=== PATIENT | female | born 1935 | race African-American/Black ===

== ENCOUNTER 2017-03-09 17:21 | Emergency (ER) | payer MEDICARE ==
[2017-03-09 17:58] LABS: ADD MAN DIFF? NO
[2017-03-09 18:00] LABS: BASO % 0 % (0-3); EOS % 2 % (0-3); HEMATOCRIT 30.4 % (36.0-47.0); HEMOGLOBIN 9.9 g/dL (12.0-15.5); LYMPH # 1.3 x10^3/uL (1.0-4.8); LYMPH % 21 % (24-48); MEAN CORPUSCULAR HEMOGLOBIN 32 pg (25-35); MEAN CORPUSCULAR HGB CONC 33 g/dL (31-37); MEAN CORPUSCULAR VOLUME 99 fL (79-100); MONO % 8 % (0-9); NEUT % 70 % (31-73); PLATELET COUNT 188 x10^3/uL (140-400); RED BLOOD COUNT 3.07 x10^6/uL (3.50-5.40); WHITE BLOOD COUNT 6.3 x10^3/uL (4.0-11.0)
[2017-03-09 18:19] LABS: ANION GAP 11 (6-14); BLOOD UREA NITROGEN 26 mg/dL (7-20); BUN/CREATININE RATIO 24 (6-20); CALCIUM 8.8 mg/dL (8.5-10.1); CARBON DIOXIDE 24 mmol/L (21-32); CHLORIDE 110 mmol/L (98-107); CREATININE 1.1 mg/dL (0.6-1.0); GFR 57.4; GLUCOSE 110 mg/dL (70-99); POTASSIUM 4.6 mmol/L (3.5-5.1); SODIUM 145 mmol/L (136-145)
[2017-03-09 18:25] LABS: ALBUMIN 3.7 g/dL (3.4-5.0); ALBUMIN/GLOBULIN RATIO 1.3 (1.0-1.7); ALK PHOS 126 U/L (46-116); ALT (SGPT) 116 U/L (14-59); AST (SGOT) 72 U/L (15-37); TOTAL BILIRUBIN 0.5 mg/dL (0.2-1.0); TOTAL PROTEIN 6.6 g/dL (6.4-8.2)
[2017-03-09 18:30] LABS: TROPONINI 0.182 ng/mL (0.000-0.055)
[2017-03-09] MEDS: IOHEXOL 300 MG/ML 100ML VIAL. IV (19:38)
[2017-03-09] MEDS ORDERED: CONTRAST GIVEN MC (19:45)
== END 2017-03-09 21:30 | disposition home or self-care (01) ==
LOC: ER 17:21
DX: R06.00 Dyspnea, unspecified (principal); R53.81 Other malaise; R53.83 Other fatigue; I11.0 Hypertensive heart disease with heart failure; I50.9 Heart failure, unspecified; M10.9 Gout, unspecified; Z88.0 Allergy status to penicillin; Z88.1 Allergy status to other antibiotic agents
CPT/HCPCS: 36415; 71010; 71275; 80053; 84484; 85025; 85379; 93005; 99285-25; Q9967

== ENCOUNTER 2018-10-02 22:57 | Emergency (ER) | payer BC, MEDICARE ==
[~2018-10-02] VITALS: Ht 175.3 cm; Wt 61.2 kg
[~2018-10-02 22:57] MED LIST: ATOR20TA PO; LISI-334 PO; METO-239 PO; TRIA1TAB3 PO
[2018-10-02 23:23] LABS: BASO % 1 % (0-3); EOS % 0 % (0-3); HEMATOCRIT 34.8 % (36.0-47.0); HEMOGLOBIN 11.7 g/dL (12.0-15.5); LYMPH # 1.3 x10^3/uL (1.0-4.8); LYMPH % 15 % (24-48); MEAN CORPUSCULAR HEMOGLOBIN 33 pg (25-35); MEAN CORPUSCULAR HGB CONC 34 g/dL (31-37); MEAN CORPUSCULAR VOLUME 99 fL (79-100); MONO # 0.7 x10^3/uL (0.0-1.1); MONO % 8 % (0-9); NEUT # 6.6 x10^3/uL (1.8-7.7); NEUT % 77 % (31-73); PLATELET COUNT 228 x10^3/uL (140-400); RED BLOOD COUNT 3.51 x10^6/uL (3.50-5.40); RED CELL DISTRIBUTION WIDTH 14.5 % (11.5-14.5); WHITE BLOOD COUNT 8.7 x10^3/uL (4.0-11.0)
[2018-10-02 23:32] LABS: PROTHROMBIN TIME PATIENT 14.4 SEC (11.7-14.0)
[2018-10-02 23:34] LABS: CALCIUM 10.2 mg/dL (8.5-10.1); CREATININE 1.4 mg/dL (0.6-1.0); GFR 43.2; POTASSIUM 4.9 mmol/L (3.5-5.1)
[2018-10-02 23:39] LABS: ALBUMIN 4.5 g/dL (3.4-5.0); ALBUMIN/GLOBULIN RATIO 1.1 (1.0-1.7); TOTAL BILIRUBIN 0.3 mg/dL (0.2-1.0); TOTAL PROTEIN 8.5 g/dL (6.4-8.2)
[2018-10-03] VITALS: BP 132/66
[2018-10-03] MEDS ORDERED: OMEP20TA8 PO (00:01)
[2018-10-03] MEDS ORDERED: LIDO:MAALOX 1:1 20 ML SINGLE DOSE. SWSW ONE (00:15)
--- NOTE | 2018-10-03 00:17 | PHYS DOC ---
Past Medical History Past Medical History: CHF, GERD, Hypertension Additional Past Medical Histor: GOUT Past Surgical History: Other Additional Past Surgical Histo: LEFT GROIN HERNIA REPAIR, CARDIAC CATH X2 WEEKS AGO NO INTERVENTION Alcohol Use: None Drug Use: None Adult General Chief Complaint Chief Complaint: CHEST PAIN HPI HPI Patient is a 83 year old [female] who presents with [chest pain]. Pt reports waking up this morning around 6:00 AM with epigastric/lower chest pain and b/l shoulder pain. She tried to go back to sleep again to see if it would go away but when she woke up it was still there. It has been constant since this time. She describes the pain as an achey pain rated 8/10 that worsens with deep inspiration and does not radiate. She denies any sensation of chest pressure. She denies neck pain, jaw pain, arm pain, nausea, or vomiting. She has a history of GERD and gastric ulcers. Review of Systems Review of Systems Constitutional: Denies fever or chills Eyes: Denies change in visual acuity, redness, or eye pain HENT: Denies nasal congestion or sore throat Respiratory: Denies cough or shortness of breath Cardiovascular: No additional information not addressed in HPI GI: Denies nausea, vomiting, bloody stools or diarrhea [Admits epigastric pain] : Denies dysuria or hematuria Musculoskeletal: Denies back pain [Admits b/l shoulder pain] Integument: Denies rash or skin lesions Neurologic: Denies headache, focal weakness or sensory changes Endocrine: Denies polyuria or polydipsia All other systems were reviewed and found to be within normal limits, except as documented in this note. Current Medications Current Medications Current Medications Medications (Trade) Dose Ordered Sig/Onofre Start Time Stop Time Status Last Admin Dose Admin Multi-Ingredient Mouthwash/Gargle (Gi Cocktail) 20 ml 1X ONCE 10/03/18 00:15 10/03/18 00:16 DC 10/03/18 00:08 20 ML Allergies Allergies Allergies Coded Allergies Type Severity Reaction Last Updated Verified Penicillins Allergy Severe 03/08/16 Yes daptomycin Allergy Intermediate 08/12/14 Yes vancomycin Allergy Intermediate 08/12/14 Yes Physical Exam Physical Exam Constitutional: Well developed, well nourished, no acute distress, non-toxic appearance. [Appears younger than stated age] HENT: Normocephalic, atraumatic, bilateral external ears normal, oropharynx moist, no oral exudates, nose normal. Eyes: PERRLA, EOMI, conjunctiva normal, no discharge. Neck: Normal range of motion, no tenderness, supple, no stridor. Cardiovascular:Heart rate regular rhythm, no murmur Lungs & Thorax: Bilateral breath sounds clear to auscultation Abdomen: Bowel sounds normal, soft, no tenderness, no masses, no pulsatile masses. [Epigastric pain was non-reproducible with palpation] Skin: Warm, dry, no erythema, no rash. Back: No tenderness, no CVA tenderness. Extremities: No tenderness, no cyanosis, no clubbing, ROM intact, no edema. [+2/4 radial pulses b/l] Neurologic: Alert and oriented X 3, normal motor function, normal sensory function, no focal deficits noted. Psychologic: Affect normal, judgement normal, mood normal. Current Patient Data Vital Signs Vital Signs Date Time Temp Pulse Resp B/P (MAP) Pulse Ox O2 Delivery O2 Flow Rate FiO2 10/03/18 00:00 91 18 132/66 (88) 99 Room Air 10/02/18 23:03 99.0 99.0 Lab Values Laboratory Tests Test 10/02/18 23:15 White Blood Count 8.7 x10^3/uL (4.0-11.0) Red Blood Count 3.51 x10^6/uL (3.50-5.40) Hemoglobin 11.7 g/dL (12.0-15.5) L Hematocrit 34.8 % (36.0-47.0) L Mean Corpuscular Volume 99 fL (79-100) Mean Corpuscular Hemoglobin 33 pg (25-35) Mean Corpuscular Hemoglobin Concent 34 g/dL (31-37) Red Cell Distribution Width 14.5 % (11.5-14.5) Platelet Count 228 x10^3/uL (140-400) Neutrophils (%) (Auto) 77 % (31-73) H Lymphocytes (%) (Auto) 15 % (24-48) L Monocytes (%) (Auto) 8 % (0-9) Eosinophils (%) (Auto) 0 % (0-3) Basophils (%) (Auto) 1 % (0-3) Neutrophils # (Auto) 6.6 x10^3/uL (1.8-7.7) Lymphocytes # (Auto) 1.3 x10^3/uL (1.0-4.8) Monocytes # (Auto) 0.7 x10^3/uL (0.0-1.1) Eosinophils # (Auto) 0.0 x10^3/uL (0.0-0.7) Basophils # (Auto) 0.0 x10^3/uL (0.0-0.2) Prothrombin Time 14.4 SEC (11.7-14.0) H Prothrombin Time INR 1.2 (0.8-1.1) H Sodium Level 138 mmol/L (136-145) Potassium Level 4.9 mmol/L (3.5-5.1) Chloride Level 102 mmol/L (98-107) Carbon Dioxide Level 25 mmol/L (21-32) Anion Gap 11 (6-14) Blood Urea Nitrogen 44 mg/dL (7-20) H Creatinine 1.4 mg/dL (0.6-1.0) H Estimated GFR (Cockcroft-Gault) 43.2 BUN/Creatinine Ratio 31 (6-20) H Glucose Level 110 mg/dL (70-99) H Calcium Level 10.2 mg/dL (8.5-10.1) H Total Bilirubin 0.3 mg/dL (0.2-1.0) Aspartate Amino Transferase (AST) 23 U/L (15-37) Alanine Aminotransferase (ALT) 27 U/L (14-59) Alkaline Phosphatase 123 U/L (46-116) H Troponin I Quantitative < 0.017 ng/mL (0.000-0.055) IG-Cdq-J-Type Natriuretic Peptide 134 pg/mL (0-449) Total Protein 8.5 g/dL (6.4-8.2) H Albumin 4.5 g/dL (3.4-5.0) Albumin/Globulin Ratio 1.1 (1.0-1.7) Lipase 119 U/L (73-393) Laboratory Tests 10/02/18 23:15 Laboratory Tests 10/02/18 23:15 EKG EKG [EKG performed on 10/02/2018 at 23:04:30 showed no STEMI. This EKG showed no obvious abnormalities/changes compared to a previous EKG on 03/09/2017. Radiology/Procedures Radiology/Procedures cxr neg my read[] Course & Med Decision Making Course & Med Decision Making Pertinent Labs and Imaging studies reviewed. (See chart for details) [Pt is an 83 yo female presenting with chest pain. Her pain started in the epigastrium this morning and evolved into diffuse chest pain. Pt has non- radiating achy pain rated an 8/10 that worsens with inspiration. Pt had a cardi ac catheterization performed when she was seen previously here at [facility] for chest pain in February 2017. At that time the catheterization showed no occlusion or evidence of coronary artery disease.Pt has a history of GERD. An EKG, troponin, CXR, CBC, and CMP were ordered to rule out TX or pneumonia. EKG performed in the ED was essentially unchanged from a previous EKG done on 03/09/2017. Her troponin levels were not elevated after constant pain all day. Suspicion of TX is low now because of the negative troponin, essentially unchanged EKG, and the normal catherization 02/2017. PE is unlikely in this pt as she takes eliquis daily for atrial fibrillation, O2 Saturation of 100%, and no history of clots in the past. A GI cocktail was prescribed for the patients possible indigestion/GERD. reassurnace provided, d/c with daughter f/u with pmd next week seems reasonable. Deuceon Disclaimer Dragon Disclaimer This electronic medical record was generated, in whole or in part, using a voice recognition dictation system. Departure Departure Impression: Primary Impression: Chest pain Disposition: HOME, SELF-CARE Condition: STABLE Referrals: JOSÉ MANUEL NAILS MD (PCP) Scripts Omeprazole (OMEPRAZOLE) 20 Mg Tablet.dr 1 TAB PO DAILY, #30 TAB 0 Refills Prov: DIRK DAWKINS MD 10/03/18 DIRK DAWKINS MD Oct 03, 2018 00:17
--- NOTE | 2018-10-03 07:30 | RAD ---
Indication: Chest pain TECHNIQUE: Single AP view of the chest COMPARISON: 03/05/2017 FINDINGS: Heart is normal in size. Lungs are clear. No pneumothorax or effusion. Bilateral glenohumeral joint osteoarthritis. Visualized bony thorax within normal limits. IMPRESSION: No acute pulmonary process. Electronically signed by: Bob Stewart DO (10/03/2018 7:27 AM) [facility]
--- NOTE | 2018-10-03 13:41 | EKG ---
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
== END 2018-10-03 00:31 | disposition home or self-care (01) ==
LOC: ER 22:57
DX: R07.89 Other chest pain (principal); R10.13 Epigastric pain; M25.511 Pain in right shoulder; M25.512 Pain in left shoulder; K21.9 Gastro-esophageal reflux disease without esophagitis; I11.0 Hypertensive heart disease with heart failure; I50.9 Heart failure, unspecified; Z98.890 Other specified postprocedural states; M10.9 Gout, unspecified; Z88.0 Allergy status to penicillin; Z88.1 Allergy status to other antibiotic agents
CPT/HCPCS: 36415; 71045; 80053; 83690; 83880; 84484; 85025; 85610; 93005; 99285-25

== ENCOUNTER → 2021-05-11 | Outpatient (CLI) | payer MEDICARE, BC ==
[~2021-05-11] MED LIST changes: -LISI-334 PO; +LISI20TA18 PO; +OMEP20TA8 PO; +REGADENOSON 0.4 MG/5 ML DISP.SYRIN. IV ONE
--- NOTE | 2021-05-11 12:37 | RAD ---
MR#: [id number] Date of Study: 05/11/2021 Ordering Physician: MARIA R BANDA, Referring Physician: NATHAN ROBERT Tech: VALERIE Hedrick, ARRT (R) (N) APPROVED REPORT Test Type: Pharmacological Stress Nurse/Tech: Josh Arana RN Test Indications: Chest Pain Cardiac History: HTN, See EMR. Medications: See EMR. Medical History: See EMR. Resting ECG: SR Resting Heart Rate: 67 bpm Resting Blood Pressure: 127/65mmHg Pretest Chest Pain: No chest pain Nurse/Tech Notes Lungs CTA, Heart tones regular. Consent: The procedure was explained to the patient in lay terms. Informed consent was witnessed. Jakub eout was entered into [employer]. History and Stress Test performed by RT Richard (R) (N) Pharm. Details Pharmacologic stress testing was performed using 0.4mg per 5ml of regadenoson given intravenously ove r 7-10 seconds. Stress Symptoms No chest pain or symptoms. POST EXERCISE Reason for Termination: Infusion complete Max HR: 101 bpm Max Blood Pressure: 136/53mmHg Blood Pressure response to exercise: Normal blood pressure response during stress. Heart Rate response to exercise: WNL Chest Pain: No. Arrhythmia: No. ST Change: No. INTERPRETATION Stress EKG Conclusion: Baseline EKG showed sinus rhythm. No ischemic changes at peak stress. No arr hythmias. Imaging Protocol IMAGE PROTOCOL: Rest Tc-99m/stress Tc-99m 1 day Rest: Stress: Viability: Radiopharm.Tc99m [id number] Sestamibi Dose10.2mCi 32mCi Img Date 05/11/2021 05/11/2021 Inj-Img [id number]. 60min. Rest Admin Site:IV - Right AntecubitalAdministrator:VALERIE Hedrick, ARRGuillermina (R)(N) Stress Admin Site: IV - Right AntecubitalAdministrator: RT Elías Ramos)(N) STRESS DATA End Diast. Vol.62.0mlAv. Heart Rate83.0bpm End Syst. Vol.19.0mlCO Index BSA0.0L/min Myocardial Vbod806.0gEject. Vgomaygr38.0% Stress Rates Pk. Fill Rate4.04EDV/secLVtime Pk. Fill 225.59msec Pk. Empty Rate4.94ESV/secLVtime Pk. Tjlle999.66msec 1/3 Pk. Fill0.59EDV/sec Stress Scores Regional WT0.00Summed WT1.00 Regional WM0.00Summed WM4.00 Study quality was good. Left Ventricular size was Normal at Rest and Stress. Lung uptake was . Left Ventricular ejection fraction is 69%. The rest and stress images show normal perfusion, normal contraction and thickening. LV Perf. Quant 17 Seg. SSS1.00 17 Seg. SRS1.00 17 Seg. SDS0.00 Stress Defect Extent (% LAD)0.00Rest Defect Extent (% LAD)0.00Rev. Defect Extent (% LAD)0.00 Stress Defect Extent (% LCX) 0.00Rest Defect Extent (% LCX)0.00Rev. Defect Extent (% LCX)0.00 Stress Defect Extent (% RCA)0.00Rest Defect Extent (% RCA)0.00Rev. Defect Extent (% RCA)0.00 Stress Defect Extent (% FRANSISCA)0.00Rest Defect Extent (% FRANSISCA)0.00Rev. Defect Extent (% FRANSISCA)0.00 Conclusion 1. Regadenoson cardioisotope stress test did not show any evidence of ischemia or infarct. 2. Normal left ventricular systolic function with ejection fraction calculated at 69%. 3. Low risk for cardiac events. Signed by : Maria R Banda, Electronically Approved : 05/11/2021 12:36:53
--- NOTE | 2021-05-11 12:57 | RAD ---
MR#: [id number] Date of Study: 05/11/2021 Ordering Physician: MARIA R CASIANO, Referring Physician: MARIA R CASIANO, Tech: Agus Frias MBA, RDMS, RVT, RDCS, RTR APPROVED REPORT Patient Location : OUT-PATIENT Indications Lower Extremity Edema : Bilateral Findings Grayscale images of superficial veins and saphenofemoral junctions bilateral lower extremities were g rossly unremarkable without any evidence of thrombus. Spectral waveform and color duplex analysis wer e within normal limits without any significant reflux in bilateral greater and lesser saphenous veins . Critical Notification Critical Value: No <Conclusion> Bilateral lower extremity venous reflux study did not show any significant insufficiency involving gr eater or lesser saphenous veins. Signed by : Maria R Casiano, Electronically Approved : 05/11/2021 12:57:27
== END ==
LOC: NM 08:33
PROVIDERS: ATTEND Internal Medicine Cardiovascular Disease
DX: R07.9 Chest pain, unspecified (principal); R22.43 Localized swelling, mass and lump, lower limb, bilateral
CPT/HCPCS: 78452; 93017; 93970; A9500; J2785